=== PATIENT | male | born 1935 | race Native Hawaiian/Other Pacific Islander ===

== ENCOUNTER 2016-08-12 10:43 | Emergency (ER) | payer OTHER ==
[~2016-08-12] VITALS: Ht 182.9 cm; Wt 78.9 kg
[2016-08-12 10:40] VITALS: TEMP 98
[2016-08-12 11:12] LABS: PLATELET COUNT 264 K/uL (142-355)
[2016-08-12 11:23] LABS: POTASSIUM 3.8 mmol/L (3.6-5.2); SODIUM 135 mmol/L (136-145)
[2016-08-12 12:00] VITALS: BP 158/78
== END 2016-08-12 12:14 | disposition home or self-care (01) ==
LOC: ED 10:43
PROVIDERS: Specialist
PROC: 0T9B70Z Drainage of Bladder with Drainage Device, Via Natural or Artificial Opening (ICD-10-PCS; principal; 2016-08-12)
DX: N13.8 Other obstructive and reflux uropathy (principal); R31.9 Hematuria, unspecified
CPT/HCPCS: 36415; 51702; 80053; 81000; 85027; 99281; 99283; J7040

== ENCOUNTER 2016-08-12 17:21 | Emergency (ER) | payer OTHER ==
[~2016-08-12] VITALS: Ht 182.9 cm; Wt 78.9 kg
[2016-08-12 17:37] VITALS: BP 147/73; TEMP 98.3
== END 2016-08-12 19:25 | disposition home or self-care (01) ==
LOC: ED 17:21
DX: Y84.6 Urinary catheterization as the cause of abnormal reaction of the patient, or of later complication, without mention of misadventure at the time of the procedure (principal); X58.XXXA Exposure to other specified factors, initial encounter; Y93.89 Activity, other specified; Y92.89 Other specified places as the place of occurrence of the external cause
CPT/HCPCS: 99281; J7040

== ENCOUNTER 2016-10-19 14:12 | Outpatient (CLI) | payer OTHER ==
[2016-10-19 14:39] LABS: PLATELET COUNT 312 K/uL (142-355)
[2016-10-19 15:12] LABS: POTASSIUM 4.9 mmol/L (3.6-5.2); SODIUM 141 mmol/L (136-145)
== END 2016-10-19 15:15 | disposition home or self-care (01) ==
LOC: LAB 14:12
PROVIDERS: Nurse Practitioner Family
DX: Z00.00 Encounter for general adult medical examination without abnormal findings (principal); E03.8 Other specified hypothyroidism; R53.83 Other fatigue; E55.9 Vitamin D deficiency, unspecified; E78.00 Pure hypercholesterolemia, unspecified; R31.9 Hematuria, unspecified; Z79.899 Other long term (current) drug therapy; Z51.81 Encounter for therapeutic drug level monitoring
CPT/HCPCS: 80053; 80061; 82306; 82607; 83036; 84436; 84443; 85027